=== PATIENT | female | born 1960 | race Caucasian/White ===

== ENCOUNTER 2017-04-02 16:11 | Emergency (ER) | payer OTHER ==
[2017-04-02 16:21] VITALS: BP 121/90; PULSE 106; RESP 18; TEMP 98; O2SAT 97
--- NOTE | 2017-04-02 16:36 | EDPHY ---
H & P Stated Complaint: c/o vag bleeding monthly with abd cramping HPI/ROS: HPI CHIEF COMPLAINT: "I dont know where to go" HISTORY OF PRESENT ILLNESS: This patient very pleasant 56-year-old female she does have significant past medical history for bipolar, she presents emergency room after she walked here from her residence. Patient tells me approximately 3 years ago she was supposed to have an endometrial biopsy and she recently had this on Thursday. She tells me she had her endometrial biopsy done for bleeding this been going on for the past 3 years every month. Patient tells me that she had endometrial biopsy by Dr. Adams on Thursday. Her results she states were discussed with her on Thursday by Dr. Bartlett's PA. She she tells me the results were inconclusive and was told to follow up with a another management development specialist. She presents emergency room here telling me that she does know where to go and she is frustrated she tells me that she could not get follow-up care with the other OBGYN she called the office multiple times and could not get in with the OBGYN. She does arrive here to the emergency room alone. She does appear upset. She tells me after the endometrial biopsy she did have some vaginal bleeding but has resolved. She had bad cramps afterwards and that is getting better. She denies fever significant abdominal pain here. When I asked her how I can help her here in the emergency room she states that she is having trouble following up about her endometrial biopsy she did not call her primary care doctor Dr. Adams. 1720: The is now arrived. Reports to me that she is supposed to follow up with this OBGYN referred by Dr. Adams. Also she is supposed to have a follow-up pelvic ultrasound at [place]. They have not scheduled this yet. When I asked the and patient if she would like ultrasound here and blood work for pelvic cramping status post endometrial biopsy she is decline. 1721: I will try to touch base with Dr. Adams to see if I can get this patient appropriate follow up and get her ultrasound appropriately done. Past Medical History: Obstructive sleep apnea, hypertension, recent endometrial biopsy, bipolar disorder Past Surgical History: Recent endometrial biopsy on Thursday Social History: Denies daily use of drugs alcohol tobacco products, lives locally, at bedside Family History: Noncontributory ROS REVIEW OF SYSTEMS: A comprehensive 10 point review of systems is otherwise negative aside from elements mentioned in the history of present illness. Exam Constitutional appears well nontoxic, triage nursing summary reviewed, vital signs reviewed, awake/alert. Eyes normal conjunctivae and sclera, EOMI, PERRLA. HENT normal inspection, atraumatic, moist mucus membranes, no epistaxis, neck supple/ no meningismus, no raccoon eyes. Respiratory clear to auscultation bilaterally, normal breath sounds, no respiratory distress, no wheezing. Cardiovascular rate normal, regular rhythm, no murmur, no edema, distal pulses normal. Gastrointestinal soft, non-tender, no rebound, no guarding, normal bowel sounds, no distension, no pulsatile mass. Genitourinary no CVA tenderness. Musculoskeletal no midline vertebral tenderness, full range of motion, no calf swelling, no tenderness of extremities, no meningismus, good pulses, neurovascularly intact. Skin pink, warm, & dry, no rash, skin atraumatic. Neurologic awake, alert and oriented x 3, AAOx3, moves all 4 extremities equally, motor intact, sensory intact, CN II-XII intact, normal cerebellar, normal vision, normal speech. Psychiatric normal mood/affect. Heme/Lymph/Immune no lymphadenopathy. Differential Diagnosis: Includes but is not limited to in a particular order pelvic pain status post endometrial biopsy, lost to follow-up, needs follow-up directions, needs pelvic ultrasound outpatient Medical Decision Making: Plan for this patient will touch base with Dr. Adams as she is directing her care status post endometrial biopsy. Also patient declined blood work her ultrasound here in the emergency room. Re-evaluation: 172: Spoke with Anum MYERS with Dr. Adams. I did discuss situation with her she knows her very well. The plan is to follow up with her tomorrow and hopefully get the appropriate follow-up care plan in place including an appoint with the referral of OBGYN. Given that the patient is refusing blood work and ultrasound appears well nontoxic stable vital signs not having ongoing vaginal bleeding or abdominal pain I think is reasonable for discharge and her own primary care doctor will help with follow-up OBGYN care. I did explain this to Piper as well as her at bedside are agreeable with this plan. Source: Patient - Personal History Current Tetanus Diphtheria and Acellular Pertussis (TDAP): Yes - Medical/Surgical History Hx Asthma: No Hx Chronic Respiratory Disease: No Hx Diabetes: No Hx Cardiac Disease: No Hx Renal Disease: No Hx Cirrhosis: No Hx Alcoholism: No Hx HIV/AIDS: No Hx Splenectomy or Spleen Trauma: No Other PMH: bipolar, total knee replacement,HTN, SLEEP APNEA,. thyroid - Social History Smoking Status: Never smoked Constitutional: Initial Vital Signs Temperature (C) 36.6 C 04/02/17 16:17 Heart Rate 106 H 04/02/17 16:17 Respiratory Rate 18 04/02/17 16:17 Blood Pressure 121/90 H 04/02/17 16:17 O2 Sat (%) 97 04/02/17 16:17 O2 Delivery Mode Room Air Allergies/Adverse Reactions: bismuth subsalicylate [From Pepto-Bismol] Allergy (Verified 07/22/15 20:53) cephalexin monohydrate [From Keflex] Allergy (Verified 07/22/15 20:53) Penicillins Allergy (Verified 07/22/15 20:53) Sulfa (Sulfonamide Antibiotics) Allergy (Verified 07/22/15 20:53) Home Medications: Medication Instructions Recorded Carvedilol 11/07/14 Clonazepam 11/07/14 Crestor 11/07/14 Depakote 11/07/14 Levothyroxine 11/07/14 Sertraline HCl 11/07/14 buPROPion 11/07/14 Albuterol Sulfate [Albuterol 2 puffs IH QID #1 mdi 01/21/15 Inhaler Hfa] Ritalin 20mg (RX) 01/21/15 Departure - Departure Disposition: Home, Routine, Self-Care Clinical Impression: Pelvic pain Condition: Good Instructions: Pelvic Pain in Women (ED) Additional Instructions: 1. Please return to the emergency room if any worsening symptoms includes heavy vaginal bleeding severe abdominal pain nausea vomiting fever or you pass out. 2. You should be contacted by her primary care doctor tomorrow about further follow-up care for the referral of your next OBGYN ultrasound. 3. As always room welcome to come back here and get blood work and ultrasound if need be. Referrals: LIAT ADAMS [Primary Care Provider] - As per Instructions
== END 2017-04-02 17:33 | disposition home or self-care (01) ==
LOC: CED 16:11
DX: R10.2 Pelvic and perineal pain (principal); I10 Essential (primary) hypertension